=== PATIENT | male | born 1950 | race Caucasian/White ===

== ENCOUNTER 2016-12-20 09:00 | Day surgery (SDC) | payer MEDICARE, OTHER ==
--- NOTE | ~2016-12-20 | EGD ---
EGD REPORT [facility] [address] [place] [address] NAME: SHAUNA AGUERO : [birth year] [place] [facility] [place] [id number] AGE: 66 ADM/REG DATE : 12/20/16 MR#: [id number] REPORT SERV DATE: 12/20/16 DICTATED BY: DENIZ PAGE DATE: 12/20/16 REPORT STATUS : Draft TRANSCRIBED BY: [facility] DATE: 12/20/16 [facility] Patient Name: Shauna Aguero Date of : 1950 Attending MD: DENIZ PAGE MD Procedure Date No Time: 12/20/2016 Procedure: Colonoscopy Indications: Screening for colorectal malignant neoplasm Referring MD: LUCIANO ROBERT Medicines: Propofol per Anesthesia Complications: No immediate complications. Procedure: Pre-Anesthesia Assessment: - ASA Grade Assessment: III - A patient with severe systemic disease. After I obtained informed consent, the scope was passed under direct vision. Throughout the procedure, the patient's blood pressure, pulse, and oxygen saturations were monitored continuously. The CF [id number] was introduced through the anus and advanced to the terminal ileum. The colonoscopy was performed without difficulty. The patient tolerated the procedure well. The quality of the bowel preparation was good. The appendiceal orifice, terminal ileum and rectum were photographed. Findings: The perianal and digital rectal examinations were normal. The terminal ileum appeared normal. The colon (entire examined portion) appeared normal. Multiple small-mouthed diverticula were found in the recto-sigmoid colon, in the sigmoid colon and in the descending colon. Non-bleeding internal hemorrhoids were found during retroflexion and were mild, medium-sized and Grade I (internal hemorrhoids that do not prolapse). Impression: - The examined portion of the ileum was normal. - The entire examined colon is normal. - Diverticulosis in the recto-sigmoid colon, in the sigmoid colon and in the descending colon. - Non-bleeding internal hemorrhoids. Recommendation: - Patient has a contact number available for emergencies. The signs and symptoms of potential delayed complications were discussed with the patient. Return to normal activities tomorrow. Written discharge instructions were provided to the patient. EGD REPORT [address] [address] NAME: SHAUNA GAUERO : [birth year] [place] [facility] [place] [id number] AGE: 66 ADM/REG DATE : 12/20/16 MR#: [id number] REPORT SERV DATE: 12/20/16 DICTATED BY: DENIZ PAGE DATE: 12/20/16 REPORT STATUS : Draft TRANSCRIBED BY: [employer] [employer] DATE: 12/20/16 - Return to previous diet. - Continue present medications. - Repeat colonoscopy in 10 years for screening purposes. - Return to my office as previously scheduled. - Discharge patient to home. Procedure Code(s): --- Professional --- G0121, Colorectal cancer screening; colonoscopy on individual not meeting criteria for high risk Diagnosis Code(s): --- Professional --- K64.0, First degree hemorrhoids K57.30, Diverticulosis of large intestine without perforation or abscess without bleeding Z12.11, Encounter for screening for malignant neoplasm of colon CPT copyright 2013 [employer]. All rights reserved. The codes documented in this report are preliminary and upon fiber optics technician review may be revised to meet current compliance requirements. Deniz Page MD DENIZ PAGE MD 12/20/2016 1:42 PM This report has been signed electronically. Number of Addenda: 0 Note Initiated On: 12/20/2016 12:48 PM Scope Withdrawal Time 0 hours 15 minutes 47 seconds [id number] [id number]
[~2016-12-20 09:00] MED LIST: ALTACE10 MG PO; ASAB PO; CEROVITE PO; DSS PO; KERI TOP; MULTIVITAMI1 PO; ZOCOR20 PO; ZOFRAN4 PO
== END 2016-12-20 23:59 | disposition home or self-care (01) ==
LOC: DMU 09:00
PROVIDERS: Internal Medicine Gastroenterology
PROC: 0DJD8ZZ Inspection of Lower Intestinal Tract, Via Natural or Artificial Opening Endoscopic (ICD-10-PCS; principal; 2016-12-20 10:00)
DX: Z12.11 Encounter for screening for malignant neoplasm of colon (principal); K64.0 First degree hemorrhoids; K57.30 Diverticulosis of large intestine without perforation or abscess without bleeding; I10 Essential (primary) hypertension; I25.10 Atherosclerotic heart disease of native coronary artery without angina pectoris; K21.9 Gastro-esophageal reflux disease without esophagitis; Z88.1 Allergy status to other antibiotic agents; Z86.69 Personal history of other diseases of the nervous system and sense organs; F41.9 Anxiety disorder, unspecified